=== PATIENT | female | born 1960 | race Caucasian/White ===

== ENCOUNTER 2019-03-24 05:56 | Inpatient (IN) ==
--- NOTE | 2019-03-04 16:29 | PAT Medication Instructions ---
Medication Instructions Date of Service March 04, 2019 Home Medications Fish Wax Borage Oil 1 cap PO QAM albuterol sulfate 90 mcg INHALATION Q6H PRN celecoxib [Celebrex] 200 mg PO QAM cholecalciferol (vitamin D3) [Vitamin D3] 2,000 unit PO QAM lisinopril-hydrochlorothiazide 1 tab PO QAM ASK your surgeon for instructions celecoxib [Celebrex] 200 mg PO QAM STOP taking 2 weeks before surgery (or as soon as possible if surgery is within 2 weeks) Fish Wax Borage Oil 1 cap PO QAM DO NOT take the morning of surgery cholecalciferol (vitamin D3) [Vitamin D3] 2,000 unit PO QAM lisinopril-hydrochlorothiazide 1 tab PO QAM Take morning of surgery With a small sip of water, OTHERWISE NOTHING TO EAT OR DRINK AFTER MIDNIGHT: albuterol sulfate 90 mcg INHALATION Q6H PRN (use if needed; please bring with you to hospital day of surgery if possible) Take evening before surgery albuterol sulfate 90 mcg INHALATION Q6H PRN (if needed) Other Notes If you have any questions please call us at [phone] or [phone] or [phone] or [phone]
--- NOTE | 2019-03-07 14:22 | Anesthesiology Consultation ---
Date of Service March 07, 2019 Assessment & Plan (1) Encounter for pre-operative examination: - Awaiting review preop testing (labs, EKG, CXR). - Awaiting surgeon-ordered PCP preop evaluation (Dr. Gracie Diaz). Chart Review Chart Review: Patient seen in Pre Admission Testing Teaching & Discussion Pre-Anesthesia Teaching/Discussion Notes: Instructed NPO after midnight before surgery,except medications with 15 cc of water. Medication instructions provided according to the PAT guidelines. History Surgery Operation Date: 03/24/19 09:50 Proposed Procedures p Left Total Knee Arthroplasty - Conner Stoddard MD Height/Weight Height: 5 ft 9 in Weight: 122.8 kg Allergies Allergy/AdvReac Type Severity Reaction Status Date / Time nickel Allergy Mild skin Verified 03/07/19 14:19 "breaks out" with earrings codeine AdvReac Mild dyspepsia Verified 03/07/19 14:19 Additional Notes: *Surgeon office/OR made aware of nickel reaction* Medications Home Medications Medication Instructions Recorded Confirmed Last Taken Fish Wax Borage Oil 1 cap PO QAM 03/02/19 03/02/19 Unknown albuterol sulfate 90 mcg INHALATION Q6H PRN 03/02/19 03/02/19 Unknown celecoxib [Celebrex] 200 mg PO QAM 03/02/19 03/02/19 Unknown cholecalciferol (vitamin D3) 2,000 unit PO QAM 03/02/19 03/02/19 Unknown [Vitamin D3] lisinopril-hydrochlorothiazide 1 tab PO QAM 03/02/19 03/02/19 Unknown Past Medical History Medical History Exercise-induced asthma stable Hx of migraines Hypertension Morbid obesity Osteoarthritis Sleep apnea CPAP Exercise / Class Metabolic Activity II 4-5 Yardwork/Stairs/Walk up hill Past Family History Family History Grandmother (Maternal) Family history of diabetes mellitus Past Surgical History Surgical History H/O shoulder surgery RT History of arthroscopy LEFT KNEE History of colonoscopy History of tooth extraction Past Anesthesia History Other Patient: "slow to wake," post-op grogginess after shoulder surgery Daughter: "slow to wake" History of PONV No Hx of Motion Sickness Social History Smoking Status: Former smoker tobacco type: cigarettes Do You Dip or Chew Tobacco: No Smoking End Date: QUIT 27 YEARS AGO Hx Alcohol Use: Yes Alcohol type: beer alcohol intake frequency: a few times a month Hx Substance Use: No substance use type: does not use Review of Systems Patient denies chest pain, shortness of breath, dyspnea on exertion, cough, wheezing, palpitations. Physical Exam Vital Signs VITALS BP 116/73 P 63 TEMP 97.8 SP02 94%RA RESP 16 PHYSICAL Full neck and c-spine range of motion. Full TMJ range of motion. TMD 3 finger breaths Mallampati Score 2 Dentition: missing molars, crowns on molars Lungs: clear throughout to auscultation Cardiac: regular rate and rhythm, no murmurs noted Spine: normal Carotid arteries: negative bruit Extremities: no edema
[2019-03-07 15:45] LABS: Basophils # (auto) 0.02 K/uL (0-0.2); Basophils % (auto) 0.2 %; Eosinophils # (auto) 0.09 K/uL (0-0.5); Eosinophils % (auto) 0.9 %; Hematocrit (blood only) 41.7 % (37-47); Hemoglobin 14.6 g/dL (12.0-16.0); Immature Granulocytes # (auto) 0.03 K/uL (0.00-0.02); Immature Granulocytes % (auto) 0.3 %; Lymphocytes # (auto) 2.08 K/uL (1.2-3.4); Lymphocytes % (auto) 21.2 %; Mean Corpuscular Hemoglobin 29.7 pg (25-34); Mean Corpuscular Volume 84.9 fL (80-100); Monocytes % (auto) 3.1 %; Neutrophils # (auto) 7.28 K/uL (1.4-6.5); Neutrophils % (auto) 74.3 %; Platelet Count 250 K/uL (130-400); RDW Coefficient of Variation 13.5 % (11.5-14.5); RDW Standard Deviation 41.8 fL (36.4-46.3); Red Blood Count 4.91 M/uL (4.2-5.4)
[2019-03-07 15:45] LABS: Appearance Urine Clear (Clear); Bacteria Urine Automated 1+ (Negative); Bilirubin Urine Negative (Negative); Blood Urine Negative (Negative); Color Urine Yellow; Epithelial Cell Urine Auto >30 /lpf (0-5); Glucose Urine UA Negative (Negative); Ketones Urine Negative (Negative); Leukocyte Esterase Urine 1+ (Negative); Nitrite Urine Negative (Negative); Protein Urine Negative (Negative); RBC Urine Automated 0-4 /hpf (0-4); Specific Gravity Urine 1.016 (1.000-1.030); Urobilinogen Urine Negative (Negative)
[2019-03-07 15:55] LABS: INR 1.1 (0.9-1.1); Partial Thromboplastin Ratio 1.1; Partial Thromboplastin Time 28.8 Seconds (21.0-31.0); Prothrombin Time 10.9 Seconds (9.0-12.0)
--- NOTE | 2019-03-07 15:56 | XRay Report ---
XR chest Pre-admission PA/Lat HISTORY: 58 years-old Female pat preoperative exam. No acute chest complaints COMPARISON: None available TECHNIQUE: PA and lateral views of the chest FINDINGS: Cardiac silhouette is upper limits of normal in size. No pneumothorax, pleural effusion, focal airspa ce consolidation or overt pulmonary edema. Degenerative changes of the shoulders and spine. IMPRESSION: No acute process. The above report was generated using voice recognition software. It may contain grammatical, syntax o r spelling errors. Electronically signed by: Mahamed Varma M.D. 03/07/2019 3:54 PM
[2019-03-07 16:23] LABS: Albumin Level 3.6 gm/dl (3.4-5.0); BUN Creatinine Ratio 15.7 (10-20); Calcium 8.9 mg/dl (8.5-10.1); Creatinine Clr Calc Pharmacy 86.9 ml/min; Est GFR (African American) 72.8; Est GFR (Non-African American) 62.8; Potassium 3.7 mmol/L (3.5-5.1)
[2019-03-08 05:30] LABS: Estimated Average Glucose 105 mg/dl; Hemoglobin A1C 5.3 % (4.5-5.6)
--- NOTE | 2019-03-23 19:24 | History & Physical Report ---
Date of Service March 23, 2019 Assessment & Plan (1) Primary osteoarthritis of left knee: Patient has failed conservative measures as above. Treatment options were discussed. Risks, benefits and alternatives to surgery including but not limited to infection, DVT, pain, stiffness, need for revision surgery, damage to blood vessels, damage to nerves, PE, , were discussed with the patient and they wish to proceed. Plan will for be for left total knee arthroplasty. Will plan on aspirin 81mg BID 30 days post operatively. She would like HHPT upon discharge from the hospital. Surgery scheduled for 03/24/19 at [facility]. She will follow up post operatively. History of Present Illness Chief Complaint: Left knee pain Primary Care Provider: Gracie Diaz 58 year old female with PMHx significant for HTN, ASHVIN, and asthma presents with long standing left knee pain. She previously has had cortisone injection and viscoelastic injections with short lasting relief. She would like to proceed with left knee replacement. Patient denies headaches, sweats, fevers, chills, double vision, blurred vision, cough, sore throat, dysphagia, chest pain, sob, wheezing, n/v/d/c, numbness, tingling, fatigue, urinary symptoms, mood disorders. ROS positive for left knee pain and stiffness. Allergies Allergy/AdvReac Type Severity Reaction Status Date / Time nickel Allergy Mild skin Verified 03/07/19 14:19 "breaks out" with earrings codeine AdvReac Mild dyspepsia Verified 03/07/19 14:19 Home Medications Home Medications Medication Instructions Recorded Confirmed Type Fish Wax Borage Oil 1 cap PO QAM 03/02/19 03/02/19 History albuterol sulfate 90 mcg INHALATION Q6H PRN 03/02/19 03/02/19 History celecoxib [Celebrex] 200 mg PO QAM 03/02/19 03/02/19 History cholecalciferol (vitamin D3) 2,000 unit PO QAM 03/02/19 03/02/19 History [Vitamin D3] lisinopril-hydrochlorothiazide 1 tab PO QAM 03/02/19 03/02/19 History Past Med/Surg History Medical History Exercise-induced asthma stable Hx of migraines Hypertension Morbid obesity Osteoarthritis Sleep apnea CPAP Surgical History H/O shoulder surgery RT History of arthroscopy LEFT KNEE History of colonoscopy History of tooth extraction Family History Grandmother (Maternal) Family history of diabetes mellitus Social History Preferred Language: Italian Communication Ability: Effective Creative Technologist Required: No Beliefs That Will Affect Care: None Current Living Situation: Spouse Other Information That Helps Us Care for You: No Feels Safe at Home: Yes Safety Concerns: Feels Safe At This Time Smoking Status: Former smoker Tobacco Type: cigarettes ; Do You Dip or Chew Tobacco: No ; Smoking End Date: QUIT 27 YEARS AGO ; Second Hand Exposure: Yes ( A CHILD) ; Tobacco Cessation Education Requested by Patient: No Hx Alcohol Use: Yes Alcohol type: beer Hx Substance Use: No Review of Systems All systems reviewed & are unremarkable except as noted in HPI & below Physical Exam Constitutional: well developed and well nourished; no acute distress Eyes: PERRL, conjunctivae normal, anicteric sclerae ENMT: external ear and nose normal, oropharynx normal Neck: trachea midline, no thyromegaly Respiratory: normal respiratory effort, lungs clear to auscultation Cardiovascular: RRR, no murmur, no edema Musculoskeletal: Left knee: mild effusion, ROM 0-135. Tenderness medial joint line. Crepitus with ROM. Positive Faustina's. Stable to valgus and varus stress Skin: no rashes, warm and dry Neurologic: patellar DTR's 2+ bilat, sensation intact Psychiatric: A+Ox3, euthymic affect Results & Data Laboratory Results Lab Results 03/07/19 03/07/19 03/07/19 Range/Units 15:10 15:10 15:10 WBC 9.80 (4.8-10.8) K/uL RBC 4.91 (4.2-5.4) M/uL Hgb 14.6 (12.0-16.0) g/dL Hct 41.7 (37-47) % MCV 84.9 (80-100) fL MCH 29.7 (25-34) pg MCHC 35.0 (32-36) g/dL RDW Std Deviation 41.8 (36.4-46.3) fL RDW Coeff of Michelle 13.5 (11.5-14.5) % Plt Count 250 (130-400) K/uL MPV 9.0 (7.4-10.4) fL Immature Gran % (Auto) 0.3 % Neut % (Auto) 74.3 % Lymph % (Auto) 21.2 % [place] % (Auto) 3.1 % Eos % (Auto) 0.9 % Baso % (Auto) 0.2 % Immature Gran # (Auto) 0.03 H (0.00-0.02) K/uL Neut # (Auto) 7.28 H (1.4-6.5) K/uL Lymph # (Auto) 2.08 (1.2-3.4) K/uL [place] # (Auto) 0.30 (0.11-0.59) K/uL Eos # (Auto) 0.09 (0-0.5) K/uL Baso # (Auto) 0.02 (0-0.2) K/uL PT 10.9 (9.0-12.0) Seconds INR 1.1 (0.9-1.1) APTT 28.8 (21.0-31.0) Seconds PTT Ratio 1.1 Sodium 138 (136-145) mmol/L Potassium 3.7 (3.5-5.1) mmol/L Chloride 103 (98-107) mmol/L Carbon Dioxide 27 (21-32) mmol/L Anion Gap 8.0 (3-11) BUN 15 (7-18) mg/dl Creatinine 0.99 (0.6-1.2) mg/dl Est Cr Clr Drug Dosing 86.9 ml/min Est GFR ( Amer) 72.8 Est GFR (Non-Af Amer) 62.8 BUN/Creatinine Ratio 15.7 (10-20) Glucose 205 H (70-99) mg/dl Estimat Average Glucose mg/dl Hemoglobin A1c (4.5-5.6) % Calcium 8.9 (8.5-10.1) mg/dl Albumin 3.6 (3.4-5.0) gm/dl Urine Color Urine Appearance (Clear) Urine pH (4.5-7.5) Ur Specific [place] (1.000-1.030) Urine Protein (Negative) Urine Glucose (UA) (Negative) Urine Ketones (Negative) Urine Blood (Negative) Urine Nitrite (Negative) Urine Bilirubin (Negative) Urine Urobilinogen (Negative) Ur Leukocyte Esterase (Negative) Urine WBC (Auto) (0-5) /hpf Urine RBC (Auto) (0-4) /hpf U Hyaline Cast (Auto) (0-5) /lpf U Epithel Cells (Auto) (0-5) /lpf Urine Bacteria (Auto) (Negative) Blood Type Antibody Screen 03/07/19 03/07/19 03/07/19 Range/Units 15:10 15:10 Unknown WBC (4.8-10.8) K/uL RBC (4.2-5.4) M/uL Hgb (12.0-16.0) g/dL Hct (37-47) % MCV (80-100) fL MCH (25-34) pg MCHC (32-36) g/dL RDW Std Deviation (36.4-46.3) fL RDW Coeff of Michelle (11.5-14.5) % Plt Count (130-400) K/uL MPV (7.4-10.4) fL Immature Gran % (Auto) % Neut % (Auto) % Lymph % (Auto) % [place] % (Auto) % Eos % (Auto) % Baso % (Auto) % Immature Gran # (Auto) (0.00-0.02) K/uL Neut # (Auto) (1.4-6.5) K/uL Lymph # (Auto) (1.2-3.4) K/uL [place] # (Auto) (0.11-0.59) K/uL Eos # (Auto) (0-0.5) K/uL Baso # (Auto) (0-0.2) K/uL PT (9.0-12.0) Seconds INR (0.9-1.1) APTT (21.0-31.0) Seconds PTT Ratio Sodium (136-145) mmol/L Potassium (3.5-5.1) mmol/L Chloride (98-107) mmol/L Carbon Dioxide (21-32) mmol/L Anion Gap (3-11) BUN (7-18) mg/dl Creatinine (0.6-1.2) mg/dl Est Cr Clr Drug Dosing ml/min Est GFR ( Amer) Est GFR (Non-Af Amer) BUN/Creatinine Ratio (10-20) Glucose (70-99) mg/dl Estimat Average Glucose 105 mg/dl Hemoglobin A1c 5.3 (4.5-5.6) % Calcium (8.5-10.1) mg/dl Albumin (3.4-5.0) gm/dl Urine Color Yellow Urine Appearance Clear (Clear) Urine pH 5.0 (4.5-7.5) Ur Specific [place] 1.016 (1.000-1.030) Urine Protein Negative (Negative) Urine Glucose (UA) Negative (Negative) Urine Ketones Negative (Negative) Urine Blood Negative (Negative) Urine Nitrite Negative (Negative) Urine Bilirubin Negative (Negative) Urine Urobilinogen Negative (Negative) Ur Leukocyte Esterase 1+ H (Negative) Urine WBC (Auto) 10-30 H (0-5) /hpf Urine RBC (Auto) 0-4 (0-4) /hpf U Hyaline Cast (Auto) 1-5 (0-5) /lpf U Epithel Cells (Auto) >30 H (0-5) /lpf Urine Bacteria (Auto) 1+ H (Negative) Blood Type O Negative Antibody Screen NEGATIVE Diagnostic Findings Left knee: Arthritic change medial and lateral compartments. [id number] patellofemoral joint
[2019-03-24] MEDS ORDERED: CEFAZOLIN 3000MG 72.5 ML IV SCH (06:00)
[2019-03-24] MEDS ORDERED: GABAPENTIN 600 MG DOSE PO SCH (06:00)
[2019-03-24] MEDS ORDERED: dexAMETHasone 4 MG TAB PO SCH (06:00)
[2019-03-24] MEDS ORDERED: FAMOTIDINE 20 MG TAB PO SCH (06:00)
[2019-03-24] MEDS ORDERED: CeleBREX 200 MG CAP PO SCH (06:00)
[2019-03-24] MEDS ORDERED: TRANEXAMIC ACID 1,000 MG **IV Pre-op IV SCH (06:00)
[2019-03-24] MEDS ORDERED: METOCLOPRAMIDE HCL 10 MG TABLET PO SCH (06:00)
[2019-03-24] MEDS ORDERED: LR 15ML/HR IV SCH (06:00)
[2019-03-24] MEDS ORDERED: ROPIVACAINE 0.5% HCL/PF 150 MG, BUPIVACAINE 0.5% MPF 30 ML, EPINEPHrine 30MG/30ML (OR U... INFIL SCH (06:00)
[2019-03-24] MEDS ORDERED: ACETAMINOPHEN 500 MG TAB PO SCH (06:00)
[2019-03-24] MEDS ORDERED: TRANEXAMIC ACID 1,000 MG **IV Intra-op IV SCH (06:30)
[2019-03-24] MEDS ORDERED: ROPIVACAINE 0.5% 5 MG/ML 30 ML VIAL ONE (06:34)
[2019-03-24] MEDS ORDERED: BUPIVACAINE 0.5 % 5 MG/1 ML PF 10ML VIAL ONE (06:34)
[2019-03-24] MEDS ORDERED: EPINEPHrine INJ 1 MG/ML AMP ONE (06:35)
[2019-03-24] MEDS ORDERED: fentaNYL citrate 100 MCG/2 ML VIAL ONE ×2 (06:40→06:44)
[2019-03-24] MEDS ORDERED: MIDAZOLAM HCL 1 MG/ML 2ML VIAL ONE ×2 (06:40→06:43)
[2019-03-24] MEDS ORDERED: PROPOFOL IV EMULSION 10 MG/ML 20 ML VIAL IV ONE ×3 (06:43→10:00)
[2019-03-24] MEDS ORDERED: LIDOCAINE HCL 2% 2 ML VIAL/AMP(20MG/ML) INFIL ONE (06:43)
[2019-03-24] MEDS ORDERED: PHENYLEPHRINE 100MCG/ML 5ML SYR ONE (06:43)
[2019-03-24] MEDS ORDERED: ePHEDrine sulfate 50 MG/ML SYR ONE (06:43)
[2019-03-24] MEDS ORDERED: BACITRACIN INJ 50,000 UNIT VIAL ONE (06:53)
[2019-03-24] MEDS ORDERED: ORTHO JOINT ANESTHETIC ONE ×2 (06:53→07:27)
--- NOTE | 2019-03-24 07:03 | History & Physical Bridge Note ---
Date of Service March 24, 2019 History & Physical Bridge Note I have examined the patient, reviewed the History & Physical and in the interval since the performance of the History & Physical I have noted the following changes of clinical significance: no changes noted
[2019-03-24] MEDS ORDERED: ePHEDrine sulfate 50 MG/ML AMP IV PRN (08:00)
[2019-03-24] MEDS ORDERED: HYDROmorphone INJ 1 MG/ML SYRINGE IV PRN (08:00)
[2019-03-24] MEDS ORDERED: ONDANSETRON INJ 2 MG/ML 2 ML VIAL IV PRN ×2 (08:00→11:42)
[2019-03-24] MEDS ORDERED: fentaNYL citrate 100 MCG/2 ML VIAL IV PRN (08:00)
[2019-03-24] MEDS ORDERED: ATROPINE SULFATE 0.1 MG/ML 10ML SYR IV PRN (08:00)
--- NOTE | 2019-03-24 09:47 | Operative Report ---
Post Operative Report Pre & Post Diagnosis Operation Date: 03/24/19 08:20 Pre-Op Diagnosis: Left Knee Osteoarthritis Post-Op Diagnosis: Left Knee Osteoarthritis I identified the patient and participated in the time-out.: Yes Procedure Operation Date: 03/24/19 08:20 Actual Procedures p Left Total Knee Arthroplasty - Conner Stoddard MD Surgeon Conner Stoddard MD Installment Agent Torito Gandhi PA-C Estimated Blood Loss 20 Findings Consistent with Post-Op Diagnosis Specimens Bone and tissue Drains 2 Hemovac Anesthesia Type MAC Spinal Regional Complications none Disposition Accompanied Patient To Recovery: No Disposition: Recovery Room Indications The patient is a 58-year-old female long-standing arthritic change in left knee. She has throughout the knee she is [id number]-[id number] patellofemoral compartment and near mdcw-sh-ilte on the lateral compartment osteophyte formation of all 3 compartments. She has failed conservative measures and wishes to proceed with a left total knee arthroplasty. Description of Procedure Risks benefits and alternatives of surgery including but not limited to infection, DVT, pain, stiffness, need for surgery, damage to blood vessels, damage to nerves or risks of anesthesia were discussed with the patient and they wished to proceed. The patient was identified and the laterality was confirmed and marked. They received a preoperative antibiotic as well as a spinal anesthetic and an abductor canal block. A well-padded tourniquet was applied and then the limb was prepped and draped in standard manner with ChloraPrep. The limb was exsanguinated and the tourniquet was inflated. I made a standard anterior incision. I sharply incised the skin then utilized Bovie electrocautery to achieve hemostasis. I made a medial parapatellar arthrotomy and mobilized the patella laterally. I then excised the anterior horns of the medial and lateral meniscus as well as the infrapatellar fat pad. I elevated a portion of the MCL off of the tibia. I then pinned into place a patient-matched distal femoral cutting guide and made my distal femoral resection. I then pinned into place the 5 in 1 femoral cutting guide. I made my anterior, posterior and chamfer cuts. I then excised the cruciates and the remaining portions of the menisci. I then pinned into place a patient- matched tibial cutting guide and made my tibial resection. I then pinned into place the tibial plate a utilizing alignment adrien to confirm rotation. I then cut for the post. Utilizing a lamina clerical secretary and I then removed posterior osteophytes off the femur. I then placed a trial femur into position and cut for the trochlear component. I then sequentially trialed to size the polyethylene until there was good soft tissue balancing and range of motion. I then prepared the patella with a freehand cut utilizing sagittal saw. I sized and drilled for the patella. There was some lateral tracking to the patella. A lateral release was required. There is good patella tracking once this was performed. All the trial components were removed. The deep tissues were anesthetized with an ortho mix solution. Then with Simplex HV with gentamicin cement, I cemented my definitive components. Definitive components, Hall and Nephew Journey 2: Femur 7 Tibia 5 Poly 10 Patella 29 oval A betadine soak was performed. A deep drain was placed. The arthrotomy was closed with interrupted #1 Vicryl suture subcutaneous tissue was closed with interrupted 2-0 Vicryl suture. The skin was closed with with liz. An Acticoat and Alexandre dressing were placed. Sterile dressings were applied. All needle and sponge counts were correct at the end of the procedure patient was transferred to the PACU in stable condition without apparent complication. The PA-C was necessary for assistance with procedure for assistance in positioning, prepping, draping, retraction and closure. I attest to the content of the Intraoperative Record and any orders documented therein. Any exceptions are noted below.
--- NOTE | 2019-03-24 10:57 | XRay Report ---
TWO VIEWS LEFT KNEE CLINICAL HISTORY: Postoperative examination. FINDINGS: AP and crosstable lateral portable views of the left knee are obtained. A left knee arthrop lasty is in near anatomic alignment. There has been undersurface remodeling of the patella. No acute fracture is seen. There are expected postoperative changes around the knee including skin clips, a gandara rgical drain, soft tissue edema, and subcutaneous gas. IMPRESSION: Expected postoperative changes status post left knee arthroplasty. No acute fracture is s een. Electronically signed by: Taurus Gordon M.D. 03/24/2019 10:56 AM
--- NOTE | 2019-03-24 11:34 | Anesthesiology Progress Note ---
Date of Service March 24, 2019 Anesthesia Post Procedure Vital Signs Vital Signs: Temp Pulse Pulse Resp BP Pulse Ox 03/24/19 11:00 71 14 114/54 L 97 03/24/19 10:50 83 21 106/62 98 03/24/19 10:40 77 12 104/49 L 98 03/24/19 10:33 36.9 C 71 20 106/55 L 99 03/24/19 06:18 36.5 C 62 18 157/87 H 94 Transfer of Care Handoff Completed per policy Notes Mental Status: alert / awake / arousable and participated in evaluation Patient Amnestic to Procedure: Yes Nausea / Vomiting: adequately controlled Pain: adequately controlled Airway Patency, RR, SpO2: stable & adequate BP & HR: stable & adequate Hydration State: stable & adequate Anesthetic Complications: no major complications apparent and Pt Satisfied with anesthetic care
[2019-03-24] MEDS ORDERED: MAGNESIUM HYDROXIDE SUSP 30 ML UDC PO PRN (11:42)
[2019-03-24] MEDS ORDERED: BISACODYL 10 MG SUPP PR PRN (11:42)
[2019-03-24] MEDS ORDERED: HYDROmorphone INJ 0.5 MG/0.5 ML SYR IV PRN (11:42)
[2019-03-24] MEDS ORDERED: NALOXONE HCL 0.4 MG/1 ML VIAL/CARP IV PRN (11:42)
[2019-03-24] MEDS ORDERED: METOCLOPRAMIDE HCL INJ 5 MG/ML 2 ML VIAL IV PRN (11:42)
[2019-03-24] MEDS ORDERED: ALBUTEROL HFA INHALER 8.5 GM INH PRN (11:44)
--- NOTE | 2019-03-24 12:09 | Anesthesiology Progress Note ---
Date of Service March 24, 2019 Anesthesia Post Procedure Vital Signs Vital Signs: Temp Pulse Pulse Resp BP Pulse Ox 03/24/19 11:30 81 19 111/59 L 100 03/24/19 11:15 77 10 L 129/68 98 03/24/19 11:00 36.8 C 71 14 114/54 L 97 03/24/19 10:50 83 21 106/62 98 03/24/19 10:40 77 12 104/49 L 98 03/24/19 10:33 36.9 C 71 20 106/55 L 99 03/24/19 06:18 36.5 C 62 18 157/87 H 94 Transfer of Care Handoff Completed per policy Notes Mental Status: alert / awake / arousable and participated in evaluation Patient Amnestic to Procedure: Yes Nausea / Vomiting: adequately controlled Pain: adequately controlled Airway Patency, RR, SpO2: stable & adequate BP & HR: stable & adequate Hydration State: stable & adequate Neuraxial Anesthesia: was administered and sensory block is resolving Anesthetic Complications: no major complications apparent and Pt Satisfied with anesthetic care
[2019-03-24] MEDS: ACETAMINOPHEN 500 MG TAB PO SCH ×2 (14:04→20:36)
[2019-03-24] MEDS: SODIUM CHLORIDE 0.9% 1000ML 1,000 ML IV SCH (15:38)
[2019-03-24] MEDS: OXYCODONE HCL IR 5 MG TAB (IMMEDIATE RELEASE) PO PRN (16:58)
[2019-03-24] MEDS: CEFAZOLIN 2000MG 2,000 MG/15 ML SYR IV SCH ×2 (17:00→23:44)
[2019-03-24] MEDS: SENNA 8.6 MG TAB PO SCH (20:35)
[2019-03-24] MEDS: DOCUSATE SODIUM 100 MG CAP PO SCH (20:35)
[2019-03-24] MEDS: ASPIRIN 81 MG ECTAB PO SCH (20:35)
[2019-03-24] MEDS: CeleBREX 200 MG CAP PO SCH (20:36)
[2019-03-25] MEDS: OXYCODONE HCL IR 5 MG TAB (IMMEDIATE RELEASE) PO PRN ×3 (03:49→21:58)
[2019-03-25] MEDS: ACETAMINOPHEN 500 MG TAB PO SCH ×3 (05:08→20:33)
[2019-03-25] MEDS: SODIUM CHLORIDE 0.9% 1000ML 1,000 ML IV SCH (06:14)
[2019-03-25 06:19] LABS: BUN Creatinine Ratio 20.4 (10-20); Calcium 8.4 mg/dl (8.5-10.1); Creatinine Clr Calc Pharmacy 90.4 ml/min; Est GFR (African American) 77.5; Est GFR (Non-African American) 66.9; Potassium 3.8 mmol/L (3.5-5.1)
[2019-03-25 06:33] LABS: Hematocrit (blood only) 34.3 % (37-47); Hemoglobin 11.7 g/dL (12.0-16.0); Mean Corpuscular Hemoglobin 28.9 pg (25-34); Mean Corpuscular Hgb Conc 34.1 g/dL (32-36); Mean Corpuscular Volume 84.7 fL (80-100); Mean Platelet Volume 9.1 fL (7.4-10.4); Platelet Count 207 K/uL (130-400); RDW Coefficient of Variation 13.3 % (11.5-14.5); RDW Standard Deviation 40.6 fL (36.4-46.3); Red Blood Count 4.05 M/uL (4.2-5.4); White Blood Count 13.05 K/uL (4.8-10.8)
--- NOTE | 2019-03-25 07:55 | Anesthesiology Progress Note ---
Date of Service March 25, 2019 Anesthesia Post Procedure Vital Signs Vital Signs: Temp Pulse Pulse Resp BP BP Pulse Ox 03/25/19 03:44 36.8 C 62 16 109/66 94 03/24/19 23:59 36.6 C 62 15 99/61 L 92 03/24/19 19:39 36.7 C 59 L 17 110/69 94 03/24/19 14:40 67 18 107/67 92 03/24/19 13:56 36.4 C L 68 20 119/73 95 03/24/19 12:44 36.4 C L 73 16 109/69 95 03/24/19 12:19 36.3 C L 68 16 116/71 98 03/24/19 11:45 36.4 C L 76 16 113/72 97 03/24/19 11:30 81 19 111/59 L 100 03/24/19 11:15 77 10 L 129/68 98 03/24/19 11:00 36.8 C 71 14 114/54 L 97 03/24/19 10:50 83 21 106/62 98 03/24/19 10:40 77 12 104/49 L 98 03/24/19 10:33 36.9 C 71 20 106/55 L 99 Pain Intensity Left Knee: Pain Intensity: 4 Transfer of Care Handoff Completed per policy Notes Mental Status: alert / awake / arousable and participated in evaluation Patient Amnestic to Procedure: Yes Nausea / Vomiting: adequately controlled Pain: adequately controlled Airway Patency, RR, SpO2: stable & adequate BP & HR: stable & adequate Hydration State: stable & adequate Neuraxial Anesthesia: was administered and sensory block resolved Anesthetic Complications: no major complications apparent and Pt Satisfied with anesthetic care
[2019-03-25] MEDS: LISINOPRIL/HCTZ 20/12.5MG 1 TAB TAB PO SCH (08:17)
[2019-03-25] MEDS: MULTIVITAMIN TAB PO SCH (08:17)
[2019-03-25] MEDS: DOCUSATE SODIUM 100 MG CAP PO SCH ×2 (08:17→20:33)
[2019-03-25] MEDS: ASPIRIN 81 MG ECTAB PO SCH ×2 (08:17→20:33)
[2019-03-25] MEDS: CeleBREX 200 MG CAP PO SCH ×2 (08:17→20:34)
[2019-03-25] MEDS: CHOLECALCIFEROL 1,000 UNITS TAB PO SCH (08:17)
--- NOTE | 2019-03-25 08:29 | Orthopedic Progress Note ---
Date of Service March 25, 2019 Assessment & Plan (1) Primary osteoarthritis of left knee: Postoperative day 1 status post left TKA PT/OT protocols. Weightbearing as tolerated. DVT prophylaxis-aspirin twice daily, SCDs, NASRIN hose Pain management as written. DC planning-to be determined after discussion with case management Present on Admission?: Yes Subjective Patient resting comfortably. Awake and alert. Pain is controlled. Denies shortness of breath, chest pain. Mild lightheadedness with initial sitting up which dissipates quickly. No other complaints at this time. Discussed plans for discharge and she wanted to speak to case management first before making any decisions. Physical Exam Physical Exam: Dressings are clean, dry, and intact. Calves are soft and nontender. Neurovascular is intact. Toes and ankle are mobile. Patient states that she had inability to dorsiflex the ankle last night due to nerve blocks however this morning strengths are equal bilaterally. Hemovac drainage was 100 mL's from the previous shift Results & Data Vital Signs (Past 12 Hours) Vital Signs Temp Pulse Pulse Resp BP BP Pulse Ox 03/25/19 07:55 36.8 C 56 L 18 124/60 95 03/25/19 03:44 36.8 C 62 16 109/66 94 03/24/19 23:59 36.6 C 62 15 99/61 L 92 Laboratory Results Laboratory Results WBC 13.05 K/uL (4.8-10.8) H 03/25/19 04:56 RBC 4.05 M/uL (4.2-5.4) L 03/25/19 04:56 Hgb 11.7 g/dL (12.0-16.0) L 03/25/19 04:56 Hct 34.3 % (37-47) L 03/25/19 04:56 MCV 84.7 fL (80-100) 03/25/19 04:56 MCH 28.9 pg (25-34) 03/25/19 04:56 MCHC 34.1 g/dL (32-36) 03/25/19 04:56 RDW Std Deviation 40.6 fL (36.4-46.3) 03/25/19 04:56 RDW Coeff of Michelle 13.3 % (11.5-14.5) 03/25/19 04:56 Plt Count 207 K/uL (130-400) 03/25/19 04:56 MPV 9.1 fL (7.4-10.4) 03/25/19 04:56 Immature Gran % (Auto) 0.3 % 03/07/19 15:10 Neut % (Auto) 74.3 % 03/07/19 15:10 Lymph % (Auto) 21.2 % 03/07/19 15:10 [place] % (Auto) 3.1 % 03/07/19 15:10 Eos % (Auto) 0.9 % 03/07/19 15:10 Baso % (Auto) 0.2 % 03/07/19 15:10 Immature Gran # (Auto) 0.03 K/uL (0.00-0.02) H 03/07/19 15:10 Neut # (Auto) 7.28 K/uL (1.4-6.5) H 03/07/19 15:10 Lymph # (Auto) 2.08 K/uL (1.2-3.4) 03/07/19 15:10 [place] # (Auto) 0.30 K/uL (0.11-0.59) 03/07/19 15:10 Eos # (Auto) 0.09 K/uL (0-0.5) 03/07/19 15:10 Baso # (Auto) 0.02 K/uL (0-0.2) 03/07/19 15:10 PT 10.9 Seconds (9.0-12.0) 03/07/19 15:10 INR 1.1 (0.9-1.1) 03/07/19 15:10 APTT 28.8 Seconds (21.0-31.0) 03/07/19 15:10 PTT Ratio 1.1 03/07/19 15:10 Sodium 138 mmol/L (136-145) 03/25/19 04:56 Potassium 3.8 mmol/L (3.5-5.1) 03/25/19 04:56 Chloride 107 mmol/L (98-107) 03/25/19 04:56 Carbon Dioxide 24 mmol/L (21-32) 03/25/19 04:56 Anion Gap 7.0 (3-11) 03/25/19 04:56 BUN 19 mg/dl (7-18) H 03/25/19 04:56 Creatinine 0.94 mg/dl (0.6-1.2) 03/25/19 04:56 Est Cr Clr Drug Dosing 90.4 ml/min 03/25/19 04:56 Est GFR ( Amer) 77.5 03/25/19 04:56 Est GFR (Non-Af Amer) 66.9 03/25/19 04:56 BUN/Creatinine Ratio 20.4 (10-20) H 03/25/19 04:56 Glucose 133 mg/dl (70-99) H 03/25/19 04:56 POC Glucose 112 (70-99) H 03/24/19 06:43 Estimat Average Glucose 105 mg/dl 03/07/19 15:10 Hemoglobin A1c 5.3 % (4.5-5.6) 03/07/19 15:10 Calcium 8.4 mg/dl (8.5-10.1) L 03/25/19 04:56 Albumin 3.6 gm/dl (3.4-5.0) 03/07/19 15:10 Urine Color Yellow 03/07/19 Unknown Urine Appearance Clear (Clear) 03/07/19 Unknown Urine pH 5.0 (4.5-7.5) 03/07/19 Unknown Ur Specific [place] 1.016 (1.000-1.030) 03/07/19 Unknown Urine Protein Negative (Negative) 03/07/19 Unknown Urine Glucose (UA) Negative (Negative) 03/07/19 Unknown Urine Ketones Negative (Negative) 03/07/19 Unknown Urine Blood Negative (Negative) 03/07/19 Unknown Urine Nitrite Negative (Negative) 03/07/19 Unknown Urine Bilirubin Negative (Negative) 03/07/19 Unknown Urine Urobilinogen Negative (Negative) 03/07/19 Unknown Ur Leukocyte Esterase 1+ (Negative) H 03/07/19 Unknown Urine WBC (Auto) 10-30 /hpf (0-5) H 03/07/19 Unknown Urine RBC (Auto) 0-4 /hpf (0-4) 03/07/19 Unknown U Hyaline Cast (Auto) 1-5 /lpf (0-5) 03/07/19 Unknown U Epithel Cells (Auto) >30 /lpf (0-5) H 03/07/19 Unknown Urine Bacteria (Auto) 1+ (Negative) H 03/07/19 Unknown Blood Type O Negative 03/07/19 15:10 Antibody Screen NEGATIVE 03/07/19 15:10
[2019-03-25] MEDS: SENNA 8.6 MG TAB PO SCH (20:34)
[2019-03-26] MEDS: ACETAMINOPHEN 500 MG TAB PO SCH (05:36)
[2019-03-26] MEDS: OXYCODONE HCL IR 5 MG TAB (IMMEDIATE RELEASE) PO PRN ×2 (05:39→11:24)
[2019-03-26] MEDS: CHOLECALCIFEROL 1,000 UNITS TAB PO SCH (08:41)
[2019-03-26] MEDS: ASPIRIN 81 MG ECTAB PO SCH (08:41)
[2019-03-26] MEDS: MULTIVITAMIN TAB PO SCH (08:41)
[2019-03-26] MEDS: LISINOPRIL/HCTZ 20/12.5MG 1 TAB TAB PO SCH (08:42)
[2019-03-26] MEDS: DOCUSATE SODIUM 100 MG CAP PO SCH (08:42)
[2019-03-26] MEDS: CeleBREX 200 MG CAP PO SCH (08:42)
--- NOTE | 2019-03-26 09:27 | Orthopedic Progress Note ---
Date of Service March 26, 2019 Assessment & Plan (1) Primary osteoarthritis of left knee: Postoperative day 2 status post left TKA PT/OT protocols. Weightbearing as tolerated. DVT prophylaxis-aspirin twice daily, SCDs, NASRIN jacobs Pain management as written. DC planning-she would like to proceed with DC with HH today Subjective Patient resting comfortably in bed. Ready to go home. She would like to discuss HH for DC. She denies CP, SOB, dizziness. Pain controlled. Physical Exam Physical Exam: Toes mobile, NVI. Calves soft, non tender. Dressing in place. some slight drainage drain site pulled this am. Results & Data Vital Signs (Past 12 Hours) Vital Signs Temp Pulse Resp BP BP Pulse Ox 03/26/19 07:47 36.9 C 58 L 17 108/71 92 03/25/19 23:00 36.7 C 61 16 111/55 L 95
--- NOTE | 2019-03-26 19:36 | Discharge Summary ---
Date of Service March 26, 2019 Admission HPI Per Admitting Provider 58 year old female with PMHx significant for HTN, ASHVIN, and asthma presents with long standing left knee pain. She previously has had cortisone injection and viscoelastic injections with short lasting relief. She would like to proceed with left knee replacement. Patient denies headaches, sweats, fevers, chills, double vision, blurred vision, cough, sore throat, dysphagia, chest pain, sob, wheezing, n/v/d/c, numbness, tingling, fatigue, urinary symptoms, mood disorders. ROS positive for left knee pain and stiffness. Admission Exam Per Admitting Provider Constitutional: well developed and well nourished; no acute distress Eyes: PERRL, conjunctivae normal, anicteric sclerae ENMT: external ear and nose normal, oropharynx normal Neck: trachea midline, no thyromegaly Respiratory: normal respiratory effort, lungs clear to auscultation Cardiovascular: RRR, no murmur, no edema Musculoskeletal: Left knee: mild effusion, ROM 0-135. Tenderness medial joint line. Crepitus with ROM. Positive Faustina's. Stable to valgus and varus stress Skin: no rashes, warm and dry Neurologic: patellar DTR's 2+ bilat, sensation intact Psychiatric: A+Ox3, euthymic affect Principal Diagnosis Left knee osteoarthritis Discharge Exam Constitutional well developed and well nourished; no acute distress Eyes PERRL, conjunctivae normal, anicteric sclerae ENMT external ear and nose normal, oropharynx normal Neck trachea midline, no thyromegaly Respiratory normal respiratory effort, lungs clear to auscultation Cardiovascular RRR, no murmur, no edema Skin no rashes, warm and dry Neurologic patellar DTR's 2+ bilat, sensation intact Psychiatric A+Ox3, euthymic affect Discharge Data Allergies Allergy/AdvReac Type Severity Reaction Status Date / Time nickel Allergy Mild skin Verified 03/24/19 06:24 "breaks out" with earrings codeine AdvReac Mild dyspepsia Verified 03/24/19 06:24 Consultations 03/24/19 11:42 Consult Case Management - Discharge Planning Routine Procedures Performed Operation Date: 03/24/19 08:20 Actual Procedures p Left Total Knee Arthroplasty(Left) - Cnoner Stoddard MD Ordered Studies 03/24/19 05:00 US - OR guided needle placemen Routine 03/24/19 08:00 US - OR guided needle placemen Routine Hospital Course (1) Primary osteoarthritis of left knee: Patient presented for same day admission following left total knee arthroplasty on 03/24/19. She tolerated procedure well. The Patient had an uneventful hospital course. Post-operatively, her activity was progressed and well tolerated. They participated in PT with ambulation distance of 230 feet. ROM of operative knee reached 95 degrees. Labs remained stable- lowest hemoglobin recorded: 11.7 . Pain controlled on oral medications. Please refer to daily progress notes and PT notes for complete details. After exam on 03/26/19, patient was felt to be stable for discharge home with home health PT. Patient will f/u in the office in about 2 weeks for further evaluation including x-rays and incision check, sooner if having any issues or concerns. Lab Results 03/07/19 03/07/19 03/07/19 Range/Units 15:10 15:10 15:10 WBC 9.80 (4.8-10.8) K/uL RBC 4.91 (4.2-5.4) M/uL Hgb 14.6 (12.0-16.0) g/dL Hct 41.7 (37-47) % MCV 84.9 (80-100) fL MCH 29.7 (25-34) pg MCHC 35.0 (32-36) g/dL RDW Std Deviation 41.8 (36.4-46.3) fL RDW Coeff of Michelle 13.5 (11.5-14.5) % Plt Count 250 (130-400) K/uL MPV 9.0 (7.4-10.4) fL Immature Gran % (Auto) 0.3 % Neut % (Auto) 74.3 % Lymph % (Auto) 21.2 % [place] % (Auto) 3.1 % Eos % (Auto) 0.9 % Baso % (Auto) 0.2 % Immature Gran # (Auto) 0.03 H (0.00-0.02) K/uL Neut # (Auto) 7.28 H (1.4-6.5) K/uL Lymph # (Auto) 2.08 (1.2-3.4) K/uL [place] # (Auto) 0.30 (0.11-0.59) K/uL Eos # (Auto) 0.09 (0-0.5) K/uL Baso # (Auto) 0.02 (0-0.2) K/uL PT 10.9 (9.0-12.0) Seconds INR 1.1 (0.9-1.1) APTT 28.8 (21.0-31.0) Seconds PTT Ratio 1.1 Sodium 138 (136-145) mmol/L Potassium 3.7 (3.5-5.1) mmol/L Chloride 103 (98-107) mmol/L Carbon Dioxide 27 (21-32) mmol/L Anion Gap 8.0 (3-11) BUN 15 (7-18) mg/dl Creatinine 0.99 (0.6-1.2) mg/dl Est Cr Clr Drug Dosing 86.9 ml/min Est GFR ( Amer) 72.8 Est GFR (Non-Af Amer) 62.8 BUN/Creatinine Ratio 15.7 (10-20) Glucose 205 H (70-99) mg/dl POC Glucose (70-99) Estimat Average Glucose mg/dl Hemoglobin A1c (4.5-5.6) % Calcium 8.9 (8.5-10.1) mg/dl Albumin 3.6 (3.4-5.0) gm/dl Urine Color Urine Appearance (Clear) Urine pH (4.5-7.5) Ur Specific [place] (1.000-1.030) Urine Protein (Negative) Urine Glucose (UA) (Negative) Urine Ketones (Negative) Urine Blood (Negative) Urine Nitrite (Negative) Urine Bilirubin (Negative) Urine Urobilinogen (Negative) Ur Leukocyte Esterase (Negative) Urine WBC (Auto) (0-5) /hpf Urine RBC (Auto) (0-4) /hpf U Hyaline Cast (Auto) (0-5) /lpf U Epithel Cells (Auto) (0-5) /lpf Urine Bacteria (Auto) (Negative) Hepatitis C Ab Screen (Neg) Blood Type Antibody Screen 03/07/19 03/07/19 03/07/19 Range/Units 15:10 15:10 Unknown WBC (4.8-10.8) K/uL RBC (4.2-5.4) M/uL Hgb (12.0-16.0) g/dL Hct (37-47) % MCV (80-100) fL MCH (25-34) pg MCHC (32-36) g/dL RDW Std Deviation (36.4-46.3) fL RDW Coeff of Michelle (11.5-14.5) % Plt Count (130-400) K/uL MPV (7.4-10.4) fL Immature Gran % (Auto) % Neut % (Auto) % Lymph % (Auto) % [place] % (Auto) % Eos % (Auto) % Baso % (Auto) % Immature Gran # (Auto) (0.00-0.02) K/uL Neut # (Auto) (1.4-6.5) K/uL Lymph # (Auto) (1.2-3.4) K/uL [place] # (Auto) (0.11-0.59) K/uL Eos # (Auto) (0-0.5) K/uL Baso # (Auto) (0-0.2) K/uL PT (9.0-12.0) Seconds INR (0.9-1.1) APTT (21.0-31.0) Seconds PTT Ratio Sodium (136-145) mmol/L Potassium (3.5-5.1) mmol/L Chloride (98-107) mmol/L Carbon Dioxide (21-32) mmol/L Anion Gap (3-11) BUN (7-18) mg/dl Creatinine (0.6-1.2) mg/dl Est Cr Clr Drug Dosing ml/min Est GFR ( Amer) Est GFR (Non-Af Amer) BUN/Creatinine Ratio (10-20) Glucose (70-99) mg/dl POC Glucose (70-99) Estimat Average Glucose 105 mg/dl Hemoglobin A1c 5.3 (4.5-5.6) % Calcium (8.5-10.1) mg/dl Albumin (3.4-5.0) gm/dl Urine Color Yellow Urine Appearance Clear (Clear) Urine pH 5.0 (4.5-7.5) Ur Specific [place] 1.016 (1.000-1.030) Urine Protein Negative (Negative) Urine Glucose (UA) Negative (Negative) Urine Ketones Negative (Negative) Urine Blood Negative (Negative) Urine Nitrite Negative (Negative) Urine Bilirubin Negative (Negative) Urine Urobilinogen Negative (Negative) Ur Leukocyte Esterase 1+ H (Negative) Urine WBC (Auto) 10-30 H (0-5) /hpf Urine RBC (Auto) 0-4 (0-4) /hpf U Hyaline Cast (Auto) 1-5 (0-5) /lpf U Epithel Cells (Auto) >30 H (0-5) /lpf Urine Bacteria (Auto) 1+ H (Negative) Hepatitis C Ab Screen (Neg) Blood Type O Negative Antibody Screen NEGATIVE 03/24/19 03/25/19 03/25/19 Range/Units 06:43 04:56 04:56 WBC 13.05 H (4.8-10.8) K/uL RBC 4.05 L (4.2-5.4) M/uL Hgb 11.7 L (12.0-16.0) g/dL Hct 34.3 L (37-47) % MCV 84.7 (80-100) fL MCH 28.9 (25-34) pg MCHC 34.1 (32-36) g/dL RDW Std Deviation 40.6 (36.4-46.3) fL RDW Coeff of Michelle 13.3 (11.5-14.5) % Plt Count 207 (130-400) K/uL MPV 9.1 (7.4-10.4) fL Immature Gran % (Auto) % Neut % (Auto) % Lymph % (Auto) % [place] % (Auto) % Eos % (Auto) % Baso % (Auto) % Immature Gran # (Auto) (0.00-0.02) K/uL Neut # (Auto) (1.4-6.5) K/uL Lymph # (Auto) (1.2-3.4) K/uL [place] # (Auto) (0.11-0.59) K/uL Eos # (Auto) (0-0.5) K/uL Baso # (Auto) (0-0.2) K/uL PT (9.0-12.0) Seconds INR (0.9-1.1) APTT (21.0-31.0) Seconds PTT Ratio Sodium 138 (136-145) mmol/L Potassium 3.8 (3.5-5.1) mmol/L Chloride 107 (98-107) mmol/L Carbon Dioxide 24 (21-32) mmol/L Anion Gap 7.0 (3-11) BUN 19 H (7-18) mg/dl Creatinine 0.94 (0.6-1.2) mg/dl Est Cr Clr Drug Dosing 90.4 ml/min Est GFR ( Amer) 77.5 Est GFR (Non-Af Amer) 66.9 BUN/Creatinine Ratio 20.4 H (10-20) Glucose 133 H (70-99) mg/dl POC Glucose 112 H (70-99) Estimat Average Glucose mg/dl Hemoglobin A1c (4.5-5.6) % Calcium 8.4 L (8.5-10.1) mg/dl Albumin (3.4-5.0) gm/dl Urine Color Urine Appearance (Clear) Urine pH (4.5-7.5) Ur Specific [place] (1.000-1.030) Urine Protein (Negative) Urine Glucose (UA) (Negative) Urine Ketones (Negative) Urine Blood (Negative) Urine Nitrite (Negative) Urine Bilirubin (Negative) Urine Urobilinogen (Negative) Ur Leukocyte Esterase (Negative) Urine WBC (Auto) (0-5) /hpf Urine RBC (Auto) (0-4) /hpf U Hyaline Cast (Auto) (0-5) /lpf U Epithel Cells (Auto) (0-5) /lpf Urine Bacteria (Auto) (Negative) Hepatitis C Ab Screen (Neg) Blood Type Antibody Screen 03/25/19 Range/Units 04:56 WBC (4.8-10.8) K/uL RBC (4.2-5.4) M/uL Hgb (12.0-16.0) g/dL Hct (37-47) % MCV (80-100) fL MCH (25-34) pg MCHC (32-36) g/dL RDW Std Deviation (36.4-46.3) fL RDW Coeff of Michelle (11.5-14.5) % Plt Count (130-400) K/uL MPV (7.4-10.4) fL Immature Gran % (Auto) % Neut % (Auto) % Lymph % (Auto) % [place] % (Auto) % Eos % (Auto) % Baso % (Auto) % Immature Gran # (Auto) (0.00-0.02) K/uL Neut # (Auto) (1.4-6.5) K/uL Lymph # (Auto) (1.2-3.4) K/uL [place] # (Auto) (0.11-0.59) K/uL Eos # (Auto) (0-0.5) K/uL Baso # (Auto) (0-0.2) K/uL PT (9.0-12.0) Seconds INR (0.9-1.1) APTT (21.0-31.0) Seconds PTT Ratio Sodium (136-145) mmol/L Potassium (3.5-5.1) mmol/L Chloride (98-107) mmol/L Carbon Dioxide (21-32) mmol/L Anion Gap (3-11) BUN (7-18) mg/dl Creatinine (0.6-1.2) mg/dl Est Cr Clr Drug Dosing ml/min Est GFR ( Amer) Est GFR (Non-Af Amer) BUN/Creatinine Ratio (10-20) Glucose (70-99) mg/dl POC Glucose (70-99) Estimat Average Glucose mg/dl Hemoglobin A1c (4.5-5.6) % Calcium (8.5-10.1) mg/dl Albumin (3.4-5.0) gm/dl Urine Color Urine Appearance (Clear) Urine pH (4.5-7.5) Ur Specific [place] (1.000-1.030) Urine Protein (Negative) Urine Glucose (UA) (Negative) Urine Ketones (Negative) Urine Blood (Negative) Urine Nitrite (Negative) Urine Bilirubin (Negative) Urine Urobilinogen (Negative) Ur Leukocyte Esterase (Negative) Urine WBC (Auto) (0-5) /hpf Urine RBC (Auto) (0-4) /hpf U Hyaline Cast (Auto) (0-5) /lpf U Epithel Cells (Auto) (0-5) /lpf Urine Bacteria (Auto) (Negative) Hepatitis C Ab Screen Neg (Neg) Blood Type Antibody Screen Total Time Total Time Spent Total Time Spent (In Minutes): 20 Discharge Plan Discharge Items Patient Disposition: Home - Home Health Services Reason For Visit: Left Knee Osteoarthritis Discharge Diagnosis: Left Knee Osteoarthritis Activity: Per Instructions section Weightbearing: Left weightbearing Weightbearing Comment: As tolerated with walker Non-emergency contact: Surgeon Call non-emergency contact if: your pain is not controlled, your temperature is above 101.5, your wound has increased redness and your wound has increased drainage Follow-up/Referrals: Gracie Diaz D.O. [Primary Care Provider] - Diet: Regular Addtl Attending Provider Instructions: ACTIVITY RECOMMENDATIONS: SELF CARE INSTRUCTIONS AFTER TOTAL KNEE REPLACEMENT A. You may need to continue a physical therapy program after discharge from the hospital. There are several options available to you. Your doctor will assist you in selecting the best one for you. 1. An out-patient facility 2 to 3 times a week for therapy or home therapy. 2. Continue working on all exercises taught to you in the hospital. Your goals should be to increase bending of your knee to 90 degrees and beyond and to fully straighten your knee. B. You may progress at your own pace from walking with a walker or crutches to a cane; then to no assistive devices. C. Make walking a part of your daily routine. Be up as much as comfortable with rest periods throughout the day. Rest with leg elevation is very important. Use the ice wrap frequently for the first 3-4 weeks. D. There are no restrictions on activities. You may ride in a car, shop, participate in rewrite editor and all social activities. E. Wear the long elastic stockings (NASRIN hose) 20 hours a day for 2 weeks after surgery. They can be removed several times a day for laundering and for a bath. F. You may shower, no tub baths until cleared by your doctor. SPECIAL CARE INSTRUCTIONS: VERY IMPORTANT TO READ AND REVIEW A. There are a few signs you need to watch for after you are home. Call [facility] if you notice any of the followin. Increased severe knee pain. Some pain is expected especially when you exercise. 2. Increased swelling in your leg or knee; pain or swelling of the calf muscle in either lower leg. 3. Any fluid drainage from the incision. 4. Shortness of breath or chest pain. B. Please call [facility] at if you have any concerns or questions about your operation or recovery. The doctor or his nurse will return your call promptly. C. You must take antibiotics before dental work, bladder, bowel or other surgery. Your doctor will provide you with a permanent care to carry describing this precaution. IMPORTANT: * REMEMBER TO TAKE ASPIRIN, 81 MG, TWICE DAILY FOR 4 WEEKS UNLESS OTHERWISE DIRECTED. THIS IS YOUR BLOOD THINNER. * HIGH RISK PATIENTS MAY BE PRESCRIBED A STRONGER BLOOD THINNER. THIS WILL BE PROVIDED AT DISCHARGE. * CALL IF INCREASED PAIN, REDNESS, DRAINAGE OR FEVER GREATER THAT 101. * WEAR NASRIN HOSE 20 HOURS PER DAY FOR 2 WEEKS. * Silverlon- This is a large adhesive bandage that contains silver ions. This helps your incision heal by fighting off bacteria and protecting it from the outside environment. You are permitted to shower with this dressing. This will remain on your incision for 7 days and then should be removed. Some visible blood or drainage through the dressing window is normal. If there is significant drainage or leaking noted before the 7 days notify your doctor's office immediately. Once removed, keep incision clean and dry. If there is any drainage or redness noted, please call your surgeon. . FOLLOW UP VISIT: If appointment is not already scheduled: Please call [facility] to make a follow-up appointment for 2 weeks after your surgery at . Pending Studies at Discharge: No Stand-Alone Forms: My [facility] [employer], Opioid Pain Management, Smoking Cessation Medications and DC Order Prescriptions: New oxycodone 5 mg tablet 5 mg PO Q4H MDD 6 PRN (Reason: pain) Qty: 30 RF: 0 celecoxib [Celebrex] 200 mg Capsule 200 mg PO BID 30 Days Qty: 60 RF: 0 sennosides [Senokot] 8.6 mg Tablet 17.2 mg PO HS PRN (Reason: constipation) Qty: 30 RF: 0 aspirin [Ecotrin Low Strength] 81 mg Tablet,Delayed Release (Dr/Ec) 81 mg PO BID 30 Days Qty: 60 RF: 0 acetaminophen [Tylenol Extra Strength] 500 mg Tablet 1,000 mg PO Q8 14 Days Qty: 84 RF: 0 Continued lisinopril-hydrochlorothiazide 20-12.5 mg Tablet 1 tab PO QAM RF: 0 cholecalciferol (vitamin D3) [Vitamin D3] 1,000 unit Tablet,Chewable 2,000 unit PO QAM RF: 0 Fish Wax Borage Oil 1 cap PO QAM RF: 0 albuterol sulfate 90 mcg/actuation Aerosol Powdr Breath Activated 90 mcg INHALATION Q6H PRN (Reason: SHORT OF BREATH) RF: 0 Discontinued celecoxib [Celebrex] 100 mg Capsule 200 mg PO QAM RF: 0 Discharge Orders: Discharge Order (Routine); Ordered 03/26/19 Ordered By: Leni Fuentes Admission Data Admit Date/Time: 03/24/19 10:50 Attending Provider: Conner Stoddard Admit Provider: Conner Stoddard Primary Care Provider: Gracie Diaz Other Providers: [facility],Home Health Other Interventions: Discharge Summary Assessment (RN) Last Done: 03/26/19 10:00 DC Date/Time DO NOT enter until pt leaves facility: 03/26/19 12:00
== END 2019-03-26 12:00 | disposition home health service (06) | DRG 470 ==
LOC: ASU 05:56 → 3E 10:50